=== PATIENT | female | born 2000 | race Caucasian/White ===

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

== ENCOUNTER 2020-01-30 | Emergency (ER) | payer SELFPAY ==
[~2020-01-30] MED LIST changes: +AMOXICILLIN500 M2 PO
[2020-01-30 23:33] LABS: HEMATOCRIT 39.1 % (37.0-47.0); HEMOGLOBIN 13.1 g/dl (12.0-16.0); IMMATURE GRANULOCYTES 0.2 % (0.0-5.0); MEAN CELL VOLUME 86.9 fL CALC (80.0-100.0); MEAN CORPUSCULAR HGB 29.1 pG CALC (26.0-32.0); MEAN CORPUSCULAR HGB CONC 33.5 g/dL CAL (32.0-36.0); NEUT# 5.91 thou/uL (2.00-7.15); RED BLOOD COUNT 4.5 mill/uL (4.20-5.60); RED CELL DISTRI WIDTH 12.9 % (11.5-15.5)
[2020-01-30 23:40] LABS: URINE BILIRUBIN - DIPSTICK NEGATIVE (NEGATIVE); URINE BLOOD DIPSTICK NEGATIVE (NEGATIVE); URINE COLOR YELLOW; URINE GLUCOSE - DIPSTICK NEGATIVE (NEGATIVE); URINE KETONE NEGATIVE (NEGATIVE); URINE LEUK ESTERASE NEGATIVE (NEGATIVE); URINE NITRITE - DIPSTICK NEGATIVE (Negative); URINE PROTEIN - DIPSTICK NEGATIVE (NEG-TRACE); URINE UROBILINOGEN - DIPSTICK 0.2 E.U./dL (0.2)
[2020-01-30 23:53] LABS: ALBUMIN 4.5 g/dL (3.2-5.0); ALKALINE PHOSPHATASE 70 u/l (38-126); AMYLASE 51 u/l (30-110); ANION GAP 11 (6-22 (CALC)); BILIRUBIN, TOTAL 0.5 mg/dL (0.0-1.4); BUN 19 mg/dL (7-17); BUN/CREATININE RATIO 18 (12-20 (CALC)); CARBON DIOXIDE 23 mmol/l (22-30); CHLORIDE 105 mmol/l (95-108); GFR > 60 ML/MIN (>=60 (CALC)); GFR FOR AFR.AMER. > 60 ML/MIN (>=60 (CALC)); LIPASE 56 u/l (23-300); POTASSIUM 3.7 mmol/l (3.5-5.1); SGOT/AST 24 u/l (14-36); SODIUM 135 mmol/l (137-146); TOTAL PROTEIN 7.7 g/dL (6.3-8.2)
[2020-01-31 00:09] LABS: URINE BACTERIA MANY hpf; URINE EPITHELIAL CELLS FEW EPI/hpf (0-FEW)
[2020-01-31] MEDS ORDERED: NAPROXEN500 MG PO ×2 (01:42)
== END 2020-01-31 01:52 | disposition home or self-care (01) | DRG 556 ==
PROVIDERS: Emergency Medicine
DX: M79.18 Myalgia, other site (principal); F17.210 Nicotine dependence, cigarettes, uncomplicated
CPT/HCPCS: Q9967

== ENCOUNTER 2020-07-12 16:37 | Emergency (ER) | payer SELFPAY ==
[~2020-07-12] VITALS: Ht 172.7 cm; Wt 68.2 kg
[~2020-07-12 16:37] MED LIST changes: +NAPROXEN500 MG PO
[2020-07-12 17:58] LABS: HCG SERUM/URINE (NEG/POS) NEGATIVE (NEGATIVE)
[2020-07-12] MEDS ORDERED: VENTOLIN HFA IN (19:01)
[2020-07-12] MEDS ORDERED: PREDNISONE20 MG PO (19:01)
[2020-07-12 20:00] VITALS: BP 120/74
== END 2020-07-12 20:00 | disposition home or self-care (01) | DRG 203 ==
LOC: ED 16:37
PROVIDERS: Student in an Organized Health Care Education/Training Program
DX: J20.9 Acute bronchitis, unspecified (principal); F17.210 Nicotine dependence, cigarettes, uncomplicated; Z20.828 Contact with and (suspected) exposure to other viral communicable diseases

== ENCOUNTER 2021-01-02 | Emergency (ER) | payer SELFPAY ==
[~2021-01-02] MED LIST changes: +PREDNISONE20 MG PO; +VENTOLIN HFA IN
[2021-01-02 11:08] LABS: HEMATOCRIT 39.2 % (37.0-47.0); IMMATURE GRANULOCYTES 0.3 % (0.0-5.0); MEAN CELL VOLUME 89.9 fL CALC (80.0-100.0); MEAN CORPUSCULAR HGB 29.8 pG CALC (26.0-32.0); MEAN CORPUSCULAR HGB CONC 33.2 g/dL CAL (32.0-36.0); NEUT# 9.34 thou/uL (2.00-7.15); RED BLOOD COUNT 4.36 mill/uL (4.20-5.60); RED CELL DISTRI WIDTH 12.8 % (11.5-15.5)
[2021-01-02 11:24] LABS: ALBUMIN 4.4 g/dL (3.2-5.0); ALKALINE PHOSPHATASE 74 u/l (38-126); ANION GAP 11 (6-22 (CALC)); BUN 9 mg/dL (7-17); BUN/CREATININE RATIO 16 (12-20 (CALC)); CARBON DIOXIDE 24 mmol/l (22-30); CHLORIDE 106 mmol/l (95-108); CREATININE 0.6 mg/dL (0.5-1.0); GFR > 60 ML/MIN (>=60 (CALC)); GFR FOR AFR.AMER. > 60 ML/MIN (>=60 (CALC)); POTASSIUM 3.7 mmol/l (3.5-5.1); SGOT/AST 24 u/l (14-36); SODIUM 137 mmol/l (137-146); TOTAL PROTEIN 7.9 g/dL (6.3-8.2)
[2021-01-02 11:27] LABS: BILIRUBIN, TOTAL 0.8 mg/dL (0.0-1.4)
[2021-01-02] MEDS ORDERED: BENADRYL 50MG C50 MG PO (11:44)
[2021-01-02] MEDS ORDERED: PATADAY0.2 % OS (11:44)
[2021-01-02] MEDS ORDERED: MEDDOSEPAK PO (11:44)
[2021-01-02] MEDS ORDERED: AMOXICILLIN500 MG PO (11:44)
== END 2021-01-02 12:10 | disposition home or self-care (01) | DRG 607 ==
PROVIDERS: Emergency Medicine
DX: L25.9 Unspecified contact dermatitis, unspecified cause (principal); J02.9 Acute pharyngitis, unspecified; F17.200 Nicotine dependence, unspecified, uncomplicated; Z20.822 Contact with and (suspected) exposure to COVID-19

== ENCOUNTER 2021-08-04 09:29 | Emergency (ER) | payer SELFPAY ==
[~2021-08-04] VITALS: Ht 172.7 cm; Wt 85.0 kg
[~2021-08-04 09:29] MED LIST changes: +AMOXICILLIN500 MG PO; +BENADRYL 50MG C50 MG PO; +MEDDOSEPAK PO; +PATADAY0.2 % OS
[2021-08-04 10:16] LABS: URINE BILIRUBIN - DIPSTICK NEGATIVE (NEGATIVE); URINE BLOOD DIPSTICK NEGATIVE (NEGATIVE); URINE COLOR YELLOW; URINE GLUCOSE - DIPSTICK NEGATIVE (NEGATIVE); URINE KETONE NEGATIVE (NEGATIVE); URINE LEUK ESTERASE NEGATIVE (NEGATIVE); URINE PH 7.5 (4.5-8.0); URINE PROTEIN - DIPSTICK NEGATIVE (NEG-TRACE); URINE SPECIFIC GRAVITY 1.015; URINE UROBILINOGEN - DIPSTICK 0.2 E.U./dL (0.2)
[2021-08-04 10:21] LABS: URINE NITRITE - DIPSTICK NEGATIVE (Negative)
[2021-08-04] MEDS ORDERED: KEFLEX500 MG PO (11:01)
[2021-08-04] MEDS ORDERED: ROBITUSSIN AC10 ML PO (11:01)
[2021-08-04 11:25] VITALS: BP 106/64
== END 2021-08-04 11:25 | disposition home or self-care (01) | DRG 153 ==
LOC: ED 09:29
PROVIDERS: Emergency Medicine
DX: J06.9 Acute upper respiratory infection, unspecified (principal); J02.9 Acute pharyngitis, unspecified; F17.210 Nicotine dependence, cigarettes, uncomplicated; Z20.822 Contact with and (suspected) exposure to COVID-19

== ENCOUNTER 2021-10-24 08:11 | Emergency (ER) | payer SELFPAY ==
[~2021-10-24] VITALS: Ht 172.7 cm; Wt 77.1 kg
[~2021-10-24 08:11] MED LIST changes: +KEFLEX500 MG PO; +ROBITUSSIN AC10 ML PO
[2021-10-24 10:16] VITALS: BP 122/74
== END 2021-10-24 10:17 | disposition left against medical advice (07) | DRG 864 ==
LOC: ED 08:11
DX: R50.9 Fever, unspecified (principal); R51.9 Headache, unspecified; Z91.19 Patient's noncompliance with other medical treatment and regimen; Z20.822 Contact with and (suspected) exposure to COVID-19

== ENCOUNTER 2022-05-01 16:51 | Emergency (ER) | payer OTHER ==
[~2022-05-01] VITALS: Ht 172.7 cm; Wt 80.0 kg
[2022-05-01 17:19] VITALS: BP 117/74
[2022-05-01 17:30] VITALS: BP 127/89
[2022-05-01 18:01] LABS: HEMATOCRIT 43.7 % (37.0-47.0); HEMOGLOBIN 14.6 g/dl (12.0-16.0); IMMATURE GRANULOCYTES 0.1 % (0.0-5.0); MEAN CELL VOLUME 91.8 fL CALC (80.0-100.0); MEAN CORPUSCULAR HGB 30.7 pG CALC (26.0-32.0); MEAN CORPUSCULAR HGB CONC 33.4 g/dL CAL (32.0-36.0); NEUT# 7.36 thou/uL (2.00-7.15); RED BLOOD COUNT 4.76 mill/uL (4.20-5.60); RED CELL DISTRI WIDTH 12.6 % (11.5-15.5)
[2022-05-01 18:11] LABS: ALBUMIN 4.4 g/dL (3.2-5.0); ALKALINE PHOSPHATASE 70 u/l (38-126); ANION GAP 14 (6-22 (CALC)); BILIRUBIN, TOTAL 0.5 mg/dL (0.0-1.4); BUN 9 mg/dL (7-17); BUN/CREATININE RATIO 10 (12-20 (CALC)); CARBON DIOXIDE 22 mmol/l (22-30); CHLORIDE 109 mmol/l (95-108); CREATININE 0.9 mg/dL (0.5-1.0); GFR FOR AFR.AMER. > 60 ML/MIN (>=60 (CALC)); GFR OTHER RACES > 60 ML/MIN (>=60 (CALC)); LIPASE 43 u/l (23-300); POTASSIUM 3.8 mmol/l (3.5-5.1); SGOT/AST 24 u/l (14-36); SODIUM 142 mmol/l (137-146); TOTAL PROTEIN 7.9 g/dL (6.3-8.2)
[2022-05-01 18:14] VITALS: BP 122/54
[2022-05-01 19:00] VITALS: BP 117/77
[2022-05-01 19:30] VITALS: BP 125/69
[2022-05-01] MEDS ORDERED: METHOCARBAMOL500 MG PO (19:55)
[2022-05-01] MEDS ORDERED: NAPROXEN500 MG PO (19:55)
[2022-05-01 20:09] VITALS: BP 125/69
[2022-05-01 20:43] LABS: URINE BILIRUBIN - DIPSTICK NEGATIVE (NEGATIVE); URINE BLOOD DIPSTICK LARGE (NEGATIVE); URINE COLOR YELLOW; URINE GLUCOSE - DIPSTICK NEGATIVE (NEGATIVE); URINE KETONE NEGATIVE (NEGATIVE); URINE LEUK ESTERASE NEGATIVE (NEGATIVE); URINE NITRITE - DIPSTICK NEGATIVE (Negative); URINE PROTEIN - DIPSTICK NEGATIVE (NEG-TRACE); URINE UROBILINOGEN - DIPSTICK 0.2 E.U./dL (0.2)
[2022-05-01 20:50] LABS: URINE SQUAMOUS EPITHELIAL CELL FEW EPI/hpf (0-FEW)
== END 2022-05-01 20:26 | disposition home or self-care (01) | DRG 605 ==
LOC: ED 16:51
PROVIDERS: Nurse Practitioner
DX: S70.01XA Contusion of right hip, initial encounter (principal); S09.90XA Unspecified injury of head, initial encounter; V53.6XXA Passenger in pick-up truck or van injured in collision with car, pick-up truck or van in traffic accident, initial encounter
CPT/HCPCS: Q9967

== ENCOUNTER 2022-05-04 19:45 | Emergency (ER) | payer OTHER ==
[~2022-05-04] VITALS: Ht 172.7 cm; Wt 79.5 kg
[~2022-05-04 19:45] MED LIST changes: +METHOCARBAMOL500 MG PO
[2022-05-04 21:01] VITALS: BP 125/87
[2022-05-04 21:16] VITALS: BP 106/64
[2022-05-04 21:46] LABS: URINE BILIRUBIN - DIPSTICK NEGATIVE (NEGATIVE); URINE BLOOD DIPSTICK MODERATE (NEGATIVE); URINE COLOR YELLOW; URINE GLUCOSE - DIPSTICK NEGATIVE (NEGATIVE); URINE KETONE NEGATIVE (NEGATIVE); URINE LEUK ESTERASE NEGATIVE (NEGATIVE); URINE PH 6.5 (4.5-8.0); URINE PROTEIN - DIPSTICK NEGATIVE (NEG-TRACE); URINE SPECIFIC GRAVITY <=1.005; URINE UROBILINOGEN - DIPSTICK 0.2 E.U./dL (0.2)
[2022-05-04 21:48] LABS: URINE NITRITE - DIPSTICK NEGATIVE (Negative)
[2022-05-04 21:50] LABS: URINE SQUAMOUS EPITHELIAL CELL RARE EPI/hpf (0-FEW); URINE WBC 0-2 WBC/hpf (0-5)
[2022-05-04 22:02] VITALS: BP 124/59
[2022-05-04 22:33] VITALS: BP 99/47
[2022-05-04 22:36] VITALS: BP 107/68
[2022-05-04] MEDS ORDERED: CYCLOBENZAPRINE10 MG PO (22:39)
[2022-05-04] MEDS ORDERED: NAPROXEN500 MG PO (22:39)
[2022-05-04 23:30] VITALS: BP 107/68
== END 2022-05-04 23:32 | disposition home or self-care (01) | DRG 552 ==
LOC: ED 19:45
PROVIDERS: Emergency Medicine
DX: S13.9XXA Sprain of joints and ligaments of unspecified parts of neck, initial encounter (principal); S23.3XXA Sprain of ligaments of thoracic spine, initial encounter; V89.2XXA Person injured in unspecified motor-vehicle accident, traffic, initial encounter

== ENCOUNTER 2022-06-12 07:16 | Emergency (ER) | payer OTHER ==
[~2022-06-12] VITALS: Ht 172.7 cm; Wt 77.3 kg
[2022-06-12] VITALS (12 sets, daily range): BP systolic 100–123; BP diastolic 61–82
[~2022-06-12 07:16] MED LIST changes: +CYCLOBENZAPRINE10 MG PO
[2022-06-12 07:53] LABS: HEMATOCRIT 40.9 % (37.0-47.0); HEMOGLOBIN 13.7 g/dl (12.0-16.0); IMMATURE GRANULOCYTES 0.1 % (0.0-5.0); MEAN CELL VOLUME 90.5 fL CALC (80.0-100.0); MEAN CORPUSCULAR HGB 30.3 pG CALC (26.0-32.0); MEAN CORPUSCULAR HGB CONC 33.5 g/dL CAL (32.0-36.0); NEUT# 4.9 thou/uL (2.00-7.15); RED BLOOD COUNT 4.52 mill/uL (4.20-5.60); RED CELL DISTRI WIDTH 12.6 % (11.5-15.5)
[2022-06-12 08:12] LABS: ALBUMIN 4.4 g/dL (3.2-5.0); ALKALINE PHOSPHATASE 68 u/l (38-126); ANION GAP 13 (6-22 (CALC)); BILIRUBIN, TOTAL 0.4 mg/dL (0.0-1.4); BUN 7 mg/dL (7-17); BUN/CREATININE RATIO 10 (12-20 (CALC)); CARBON DIOXIDE 25 mmol/l (22-30); CHLORIDE 104 mmol/l (95-108); CREATININE 0.8 mg/dL (0.5-1.0); GFR FOR AFR.AMER. > 60 ML/MIN (>=60 (CALC)); GFR OTHER RACES > 60 ML/MIN (>=60 (CALC)); POTASSIUM 3.6 mmol/l (3.5-5.1); SGOT/AST 21 u/l (14-36); SODIUM 138 mmol/l (137-146); TOTAL PROTEIN 7.5 g/dL (6.3-8.2)
[2022-06-12 08:13] LABS: URINE BILIRUBIN - DIPSTICK NEGATIVE (NEGATIVE); URINE BLOOD DIPSTICK NEGATIVE (NEGATIVE); URINE COLOR YELLOW; URINE GLUCOSE - DIPSTICK NEGATIVE (NEGATIVE); URINE KETONE NEGATIVE (NEGATIVE); URINE LEUK ESTERASE NEGATIVE (NEGATIVE); URINE PROTEIN - DIPSTICK NEGATIVE (NEG-TRACE); URINE UROBILINOGEN - DIPSTICK 0.2 E.U./dL (0.2)
[2022-06-12 08:17] LABS: URINE NITRITE - DIPSTICK NEGATIVE (Negative)
== END 2022-06-12 11:17 | disposition home or self-care (01) | DRG 392 ==
LOC: ED 07:16
PROVIDERS: Family Medicine
DX: K59.00 Constipation, unspecified (principal)
CPT/HCPCS: Q9967

== ENCOUNTER 2022-11-14 13:32 | Emergency (ER) | payer SELFPAY ==
[~2022-11-14] VITALS: Ht 172.7 cm; Wt 90.0 kg
[2022-11-14 14:19] VITALS: BP 116/75
[2022-11-14 14:30] VITALS: BP 110/71
[2022-11-14] MEDS ORDERED: BACTRIM DS1 TAB PO (14:40)
[2022-11-14] MEDS ORDERED: CEPHALEXIN500 M1 PO (14:40)
[2022-11-14 14:45] VITALS: BP 124/78
[2022-11-14 15:01] VITALS: BP 98/53
[2022-11-14 19:28] VITALS: BP 112/70
[2022-11-15] MEDS ORDERED: CEPHALEXIN500 M1 PO (12:26)
[2022-11-15] MEDS ORDERED: BACTRIM DS1 TAB PO (12:26)
== END 2022-11-14 16:22 | disposition home or self-care (01) | DRG 603 ==
LOC: ED 13:32
PROC: 0H9HXZZ Drainage of Right Upper Leg Skin, External Approach (ICD-10-PCS; principal; 2022-11-14)
DX: L02.415 Cutaneous abscess of right lower limb (principal)

== ENCOUNTER 2023-10-30 12:50 | Emergency (ER) | payer SELFPAY ==
[2023-10-30] VITALS (14 sets, daily range): BP systolic 93–124; BP diastolic 50–81
[~2023-10-30] VITALS: Ht 172.7 cm; Wt 75.0 kg
[~2023-10-30 12:50] MED LIST changes: +BACTRIM DS1 TAB PO; +CEPHALEXIN500 M1 PO
[2023-10-30] MEDS ORDERED: NAPROXEN500 MG PO (16:55)
== END 2023-10-30 17:08 | disposition home or self-care (01) | DRG 556 ==
LOC: ED 12:50
DX: M79.672 Pain in left foot (principal); M79.671 Pain in right foot; F17.200 Nicotine dependence, unspecified, uncomplicated

== ENCOUNTER 2024-04-20 14:12 | Emergency (ER) | payer SELFPAY ==
[~2024-04-20] VITALS: Ht 172.7 cm; Wt 82.1 kg
[2024-04-20] MEDS ORDERED: IPRATROPIUM-Albuterol 0.5MG-2.5MG/3 ML NEB ONE (15:20)
[2024-04-20] MEDS ORDERED: ZOFRAN4 MG/TAB PO (16:50)
[2024-04-20] MEDS ORDERED: ZYRTEC10 MG PO (16:50)
[2024-04-20] MEDS ORDERED: PROAIR HFA IN (16:50)
[2024-04-20 17:30] VITALS: BP 113/72
== END 2024-04-20 17:31 | disposition home or self-care (01) | DRG 833 ==
LOC: ED 14:12
DX: O99.512 Diseases of the respiratory system complicating pregnancy, second trimester (principal); J06.9 Acute upper respiratory infection, unspecified; O99.332 Smoking (tobacco) complicating pregnancy, second trimester; F17.200 Nicotine dependence, unspecified, uncomplicated; Z3A.14 14 weeks gestation of pregnancy; Z20.822 Contact with and (suspected) exposure to COVID-19